=== PATIENT | female | born 1995 ===

== ENCOUNTER 2022-04-02 05:43 | Emergency (ER) ==
[2022-04-02] MEDS ORDERED: Phenazopyridine 95 MG Tab PO ONE (05:44)
[2022-04-02] MEDS ORDERED: Cephalexin 500 MG Cap PO ONE (05:44)
== END 2022-04-02 20:22 | disposition home or self-care (01) ==
LOC: DL.ED 05:43
DX: N39.0 Urinary tract infection, site not specified (principal)
CPT/HCPCS: 81001; 81025; 87086; 99283; A9270-GY